=== PATIENT | male | born 1935 | race Caucasian/White ===

== ENCOUNTER → 2016-10-09 | Outpatient (CLI) | payer OTHER ==
[~2016-10-09] MED LIST: ALLO100T PO; ASPI-556 PO; ATOR40TA28 PO; COLC0.6C PO; FISH1CAP49 PO; FURO20 PO; MECL-111 PO; MULT-1259 PO; TAMS0.4C32 PO
[2016-10-09 08:42] LABS: BASOPHILS % (AUTO) 0.5 % (0.0-2.0); EOSINOPHILS % (AUTO) 1.4 % (1.0-6.0); HEMATOCRIT 42.5 % (41-53); HEMOGLOBIN 13.9 g/dL (13.5-17.5); LYMPHOCYTES # (AUTO) 1.5 K/uL (1.0-4.8); LYMPHOCYTES % (AUTO) 28.6 % (22.0-44.0); MEAN CORPUSCULAR HEMOGLOBIN 31.1 pg (26.0-34.0); MEAN CORPUSCULAR HGB CONC 32.7 G/dL (31.0-37.0); MEAN CORPUSCULAR VOLUME 95 fL (80-100); MONOCYTES # (AUTO) 0.4 K/uL (0.1-1.0); MONOCYTES % (AUTO) 7.5 % (2.0-9.0); NEUTROPHILS # (AUTO) 3.3 K/uL (1.8-7.7); PLATELET COUNT (AUTO) 171 K/uL (150-450); RED BLOOD CELL COUNT(AUTO) 4.47 MIL/uL (4.50-5.90); RED CELL DISTRIBUTION WIDTH 14.4 % (11.5-14.5); WHITE BLOOD COUNT (AUTO) 5.3 K/uL (4.5-11.0)
[2016-10-09 09:09] LABS: ALANINE AMINOTRANSFERASE 63 U/L (12-78); ALBUMIN 3.6 g/dL (3.4-5.0); ANION GAP 8 mmol/L (8-16); ASPARTATE AMINOTRANSFERASE 40 U/L (15-37); BILIRUBIN,TOTAL 0.5 mg/dL (0.1-1.0); CALCIUM, TOTAL 8.4 mg/dL (8.8-10.5); CARBON DIOXIDE 25 mmol/L (22-29); CHLORIDE 108 mmol/L (98-107); CHOL/HDL RATIO 2.7 (4.2-7.3); CREATININE 1.01 mg/dL (0.60-1.30); GLOMERULAR FILTR. RATE CALC > 60 mL/min (>60); POTASSIUM 5.4 mmol/L (3.5-5.1); SODIUM SERUM 141 mmol/L (136-145); THYROID STIMULATING HORMONE 4.88 uIU/mL (0.36-3.74); TOTAL PROTEIN, SERUM 6.3 g/dL (6.4-8.2); UREA NITROGEN, BLOOD 23 mg/dL (7-18)
== END | disposition home or self-care (01) ==
LOC: LABMN 08:16
PROVIDERS: ATTEND Internal Medicine Cardiovascular Disease
DX: E11.8 Type 2 diabetes mellitus with unspecified complications (principal); I11.0 Hypertensive heart disease with heart failure; I50.9 Heart failure, unspecified
CPT/HCPCS: 82306; 83036; 84439; 84443

== ENCOUNTER 2016-11-02 08:12 | Day surgery (SDC) | payer OTHER ==
[~2016-11-02] VITALS: Ht 182.9 cm; Wt 83.6 kg
[~2016-11-02 08:12] MED LIST changes: +0.9% SODIUM CHLORIDE 10 ML SYRINGE IVP ONE; -ALLO100T PO; -ATOR40TA28 PO; -COLC0.6C PO; -FURO20 PO; -MECL-111 PO; -TAMS0.4C32 PO
[2016-11-02] MEDS ORDERED: METOPROLOL TARTRATE 50 MG TABLET PO PRN (08:30)
[2016-11-02] MEDS ORDERED: 0.9% SODIUM CHLORIDE 10 ML SYRINGE IVP PRN (08:30)
[2016-11-02] MEDS ORDERED: ATOR40TA28 PO (08:34)
[2016-11-02 08:42] LABS: CALCIUM, TOTAL 8.3 mg/dL (8.8-10.5); CREATININE 1.17 mg/dL (0.60-1.30); POTASSIUM 4.3 mmol/L (3.5-5.1)
[2016-11-02] MEDS ORDERED: IOVERSOL 350 MG/ML 100 ML VIAL ONE (09:33)
[2016-11-02] MEDS ORDERED: SODIUM CHLORIDE 0.9% 100 ML ONE (09:34)
[2016-11-02] MEDS ORDERED: METOPROLOL TARTRATE 5 MG/5 ML VIAL ONE (09:45)
[2016-11-02] MEDS ORDERED: NITROGLYCERIN 400 MCG/SUBLINGUAL SPRAY 4.9 GM BOTTLE SL ONE (09:45)
== END 2016-11-02 10:55 | disposition home or self-care (01) ==
LOC: SDS 08:12
PROVIDERS: ATTEND Internal Medicine Cardiovascular Disease
DX: I25.10 Atherosclerotic heart disease of native coronary artery without angina pectoris (principal); I65.02 Occlusion and stenosis of left vertebral artery; N18.9 Chronic kidney disease, unspecified; E78.00 Pure hypercholesterolemia, unspecified; I50.30 Unspecified diastolic (congestive) heart failure; M54.9 Dorsalgia, unspecified; M10.9 Gout, unspecified; Z87.890 Personal history of sex reassignment; Z98.42 Cataract extraction status, left eye; Z98.41 Cataract extraction status, right eye
CPT/HCPCS: 36415; 70498; 75574; 80048; 93005; J7050; Q9967; J3490

== ENCOUNTER 2016-11-08 16:17 | Emergency (ER) | payer OTHER ==
[~2016-11-08] VITALS: Ht 182.9 cm; Wt 83.6 kg
[~2016-11-08 16:17] MED LIST changes: -0.9% SODIUM CHLORIDE 10 ML SYRINGE IVP ONE; +ATOR40TA28 PO
[2016-11-08] MEDS ORDERED: ALLO100T PO (16:38)
[2016-11-08] MEDS ORDERED: COLC0.6C PO (16:38)
[2016-11-08] MEDS ORDERED: MECL-111 PO (16:38)
[2016-11-08] MEDS ORDERED: TAMS0.4C32 PO (16:38)
[2016-11-08] MEDS ORDERED: FURO20 PO (16:38)
[2016-11-08 19:34] LABS: BASOPHILS % (AUTO) 0.5 % (0.0-2.0); EOSINOPHILS % (AUTO) 1.7 % (1.0-6.0); HEMATOCRIT 42.3 % (41-53); HEMOGLOBIN 13.7 g/dL (13.5-17.5); LYMPHOCYTES # (AUTO) 1.5 K/uL (1.0-4.8); LYMPHOCYTES % (AUTO) 25.9 % (22.0-44.0); MEAN CORPUSCULAR HEMOGLOBIN 30.6 pg (26.0-34.0); MEAN CORPUSCULAR HGB CONC 32.4 G/dL (31.0-37.0); MEAN CORPUSCULAR VOLUME 95 fL (80-100); MONOCYTES # (AUTO) 0.5 K/uL (0.1-1.0); MONOCYTES % (AUTO) 8.6 % (2.0-9.0); NEUTROPHILS # (AUTO) 3.6 K/uL (1.8-7.7); NEUTROPHILS % (AUTO) 63.3 % (40.0-70.0); PLATELET COUNT (AUTO) 170 K/uL (150-450); RED BLOOD CELL COUNT(AUTO) 4.47 MIL/uL (4.50-5.90); RED CELL DISTRIBUTION WIDTH 14.3 % (11.5-14.5); WHITE BLOOD COUNT (AUTO) 5.7 K/uL (4.5-11.0)
[2016-11-08 19:43] LABS: INR 1.2 (0.9-1.1); PROTHROMBIN TIME 12.4 SEC (9.4-11.6)
[2016-11-08 19:50] LABS: CALCIUM, TOTAL 8.1 mg/dL (8.8-10.5); CREATININE 1.17 mg/dL (0.60-1.30)
[2016-11-08 19:55] LABS: ALBUMIN 3.7 g/dL (3.4-5.0); BILIRUBIN,TOTAL 0.6 mg/dL (0.1-1.0); TOTAL PROTEIN, SERUM 6.3 g/dL (6.4-8.2)
[2016-11-08 20:18] VITALS: BP 132/72
== END 2016-11-08 20:42 | disposition home or self-care (01) ==
LOC: EEVIPCON 16:17 → EMS 16:18
DX: R07.9 Chest pain, unspecified (principal); I11.0 Hypertensive heart disease with heart failure; I50.9 Heart failure, unspecified; I25.2 Old myocardial infarction; Z95.1 Presence of aortocoronary bypass graft; Z79.82 Long term (current) use of aspirin
CPT/HCPCS: 93005; 99285

== ENCOUNTER → 2016-12-01 | Outpatient (CLI) | payer OTHER ==
[~2016-12-01] MED LIST changes: +ALLO100T PO; +COLC0.6C PO; -FISH1CAP49 PO; +FURO20 PO; +MECL-111 PO; -MULT-1259 PO; +TAMS0.4C32 PO
[2016-12-01 08:16] LABS: BASOPHILS # (AUTO) 0.05 K/uL (0.00-0.20); BASOPHILS % (AUTO) 1.4 % (0.0-2.0); EOSINOPHILS # (AUTO) 0.07 K/uL (0.00-0.70); HEMATOCRIT 40.5 % (41-53); HEMOGLOBIN 13.4 g/dL (13.5-17.5); LYMPHOCYTES % (AUTO) 29.8 % (22.0-44.0); MEAN CORPUSCULAR HEMOGLOBIN 30.9 pg (26.0-34.0); MEAN CORPUSCULAR HGB CONC 33.2 G/dL (31.0-37.0); MEAN CORPUSCULAR VOLUME 93 fL (80-100); MONOCYTES # (AUTO) 0.3 K/uL (0.1-1.0); MONOCYTES % (AUTO) 7.6 % (2.0-9.0); NEUTROPHILS % (AUTO) 59.2 % (40.0-70.0); PLATELET COUNT (AUTO) 147 K/uL (150-450); RED BLOOD CELL COUNT(AUTO) 4.35 MIL/uL (4.50-5.90); RED CELL DISTRIBUTION WIDTH 14.3 % (11.5-14.5); WHITE BLOOD COUNT (AUTO) 3.3 K/uL (4.5-11.0)
[2016-12-01 08:30] LABS: HEMOGLOBIN A1C 4.8 % (4.5-6.2)
[2016-12-01 08:38] LABS: ALANINE AMINOTRANSFERASE 42 U/L (12-78); ALBUMIN 3.3 g/dL (3.4-5.0); ANION GAP 6 mmol/L (8-16); ASPARTATE AMINOTRANSFERASE 43 U/L (15-37); BILIRUBIN,TOTAL 0.7 mg/dL (0.1-1.0); CALCIUM, TOTAL 7.7 mg/dL (8.8-10.5); CARBON DIOXIDE 28 mmol/L (22-29); CHLORIDE 111 mmol/L (98-107); CHOL/HDL RATIO 3.6 (4.2-7.3); CREATININE 0.93 mg/dL (0.60-1.30); GLOMERULAR FILTR. RATE CALC > 60 mL/min (>60); SODIUM SERUM 145 mmol/L (136-145); THYROID STIMULATING HORMONE 2.95 uIU/mL (0.36-3.74); TOTAL PROTEIN, SERUM 5.8 g/dL (6.4-8.2); UREA NITROGEN, BLOOD 16 mg/dL (7-18)
[2016-12-01 10:12] LABS: URIC ACID 6.2 mg/dL (2.6-7.2)
== END | disposition home or self-care (01) ==
LOC: LABMN 07:20
PROVIDERS: ATTEND Internal Medicine
DX: I11.0 Hypertensive heart disease with heart failure (principal); I50.9 Heart failure, unspecified; E11.9 Type 2 diabetes mellitus without complications
CPT/HCPCS: 82652; 83036; 84439; 84443; 84550

== ENCOUNTER → 2017-03-08 | Outpatient (CLI) | payer OTHER ==
[2017-03-08 10:32] LABS: CALCIUM, TOTAL 7.9 mg/dL (8.8-10.5); CREATININE 1.68 mg/dL (0.60-1.30)
== END | disposition home or self-care (01) ==
LOC: LABMN 10:11
PROVIDERS: ATTEND Hospitalist
DX: I50.9 Heart failure, unspecified (principal)

== ENCOUNTER → 2017-04-16 | Outpatient (CLI) | payer OTHER ==
[2017-04-16 11:10] LABS: BASOPHILS % (AUTO) 0.3 % (0.0-2.0); EOSINOPHILS % (AUTO) 0.8 % (1.0-6.0); HEMATOCRIT 38.4 % (41-53); HEMOGLOBIN 12.7 g/dL (13.5-17.5); LYMPHOCYTES # (AUTO) 1.5 K/uL (1.0-4.8); LYMPHOCYTES % (AUTO) 35.9 % (22.0-44.0); MEAN CORPUSCULAR HEMOGLOBIN 30.4 pg (26.0-34.0); MEAN CORPUSCULAR HGB CONC 33.1 G/dL (31.0-37.0); MEAN CORPUSCULAR VOLUME 92 fL (80-100); MONOCYTES # (AUTO) 0.3 K/uL (0.1-1.0); NEUTROPHILS # (AUTO) 2.3 K/uL (1.8-7.7); PLATELET COUNT (AUTO) 152 K/uL (150-450); RED BLOOD CELL COUNT(AUTO) 4.18 MIL/uL (4.50-5.90); RED CELL DISTRIBUTION WIDTH 15.2 % (11.5-14.5); WHITE BLOOD COUNT (AUTO) 4.1 K/uL (4.5-11.0)
[2017-04-16 11:37] LABS: ALBUMIN 3.6 g/dL (3.4-5.0); BILIRUBIN,TOTAL 0.5 mg/dL (0.1-1.0); CALCIUM, TOTAL 8.4 mg/dL (8.8-10.5); CHOL/HDL RATIO 3.5 (4.2-7.3); CREATININE 1.18 mg/dL (0.60-1.30); POTASSIUM 5.2 mmol/L (3.5-5.1); THYROID STIMULATING HORMONE 2.8 uIU/mL (0.36-3.74); TOTAL PROTEIN, SERUM 6.1 g/dL (6.4-8.2)
[2017-04-16 12:27] LABS: URIC ACID 5.7 mg/dL (2.6-7.2)
== END | disposition home or self-care (01) ==
LOC: LABMN 10:41
PROVIDERS: ATTEND Internal Medicine
DX: I10 Essential (primary) hypertension (principal); E78.5 Hyperlipidemia, unspecified; I25.10 Atherosclerotic heart disease of native coronary artery without angina pectoris; M10.9 Gout, unspecified
CPT/HCPCS: 84443; 84550

== ENCOUNTER → 2017-05-10 | Outpatient (CLI) | payer OTHER ==
[2017-05-10 09:35] LABS: ANION GAP 7 mmol/L (8-16); CALCIUM, TOTAL 7.9 mg/dL (8.8-10.5); CARBON DIOXIDE 23 mmol/L (22-29); CHLORIDE 111 mmol/L (98-107); GLOMERULAR FILTR. RATE CALC > 60 mL/min (>60); POTASSIUM 5.1 mmol/L (3.5-5.1); SODIUM SERUM 141 mmol/L (136-145); UREA NITROGEN, BLOOD 15 mg/dL (7-18)
[2017-05-10 09:49] LABS: B-TYPE NATRIURETIC PEPTIDE 181 pg/mL (0-100)
== END | disposition home or self-care (01) ==
LOC: LABMN 08:59
PROVIDERS: ATTEND Internal Medicine Cardiovascular Disease
DX: I11.0 Hypertensive heart disease with heart failure (principal); I50.9 Heart failure, unspecified; E11.8 Type 2 diabetes mellitus with unspecified complications; E55.9 Vitamin D deficiency, unspecified